=== PATIENT | male | born 1995 | race Caucasian/White ===

== ENCOUNTER 2019-01-31 20:42 | Emergency (ER) | payer SELFPAY ==
[2019-01-31] MEDS ORDERED: Lidocaine 2% Viscous Solution 15 ML Cup PO ONE (20:43)
[2019-01-31] MEDS ORDERED: Acetaminophen/HYDROcodone 325-10 MG Tab PO ONE (20:43)
[2019-01-31] MEDS ORDERED: Clindamycin HCl 150 MG Cap PO ONE (20:49)
[2019-01-31] MEDS ORDERED: Acetaminophen/HYDROcodone 325-10 MG Tab ONE (20:51)
[2019-01-31] MEDS ORDERED: Lidocaine 2% Viscous Solution 15 ML Cup ONE (20:52)
--- NOTE | 2019-01-31 20:53 | EDM.PDOC ---
ED HPI GENERAL MEDICAL PROBLEM - General Chief Complaint: ENT Problem Stated Complaint: RIGHT SIDE OF JAW-PAIN Time Seen by Provider: 01/31/19 20:50 Source of Information: Reports: Patient History Limitations: Reports: No Limitations - History of Present Illness INITIAL COMMENTS - FREE TEXT/NARRATIVE: broke tooth few days ago. 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 [No Known Home Meds] 01/31/19 [History] Past Medical History - Past Health History Medical/Surgical History: Denies Medical/Surgical History Social & Family History - Family History Family Medical History: Noncontributory ED ROS ENT - Review of Systems Review Of Systems: ROS reveals no pertinent complaints other than HPI. ED EXAM, ENT - Physical Exam Exam: See Below Exam Limited By: No Limitations General Appearance: Alert, WD/WN, Mild Distress, Other (pain) Ears: Hearing Grossly Normal Mouth/Throat: Dental Abcess, Dental Pain, Dental Tenderness Head: Atraumatic Neck: Non-Tender, Full Range of Motion Respiratory/Chest: No Respiratory Distress Cardiovascular: Regular Rate, Rhythm GI/Abdominal: Soft, Non-Tender Neurological: Alert, Oriented, Normal Cognition, Normal Gait, No Motor/Sensory Deficits Psychiatric: Tearful Skin: Warm, Dry, Normal Color Lymphatic: No Adenopathy Course - Vital Signs Last Recorded V/S: Last Vital Signs Temp 36.6 C 01/31/19 20:46 Pulse 103 H 01/31/19 20:46 Resp 18 01/31/19 20:46 BP 156/104 H 01/31/19 20:46 Pulse Ox 100 01/31/19 20:46 - Orders/Labs/Meds Meds: Medications Discontinued Medications Generic Name Dose Route Start Last Admin Trade Name Freq PRN Reason Stop Dose Admin Clindamycin HCl 300 mg 01/31/19 20:49 Cleocin PO 01/31/19 20:50 ONETIME ONE Departure - Departure Time of Disposition: 20:52 Disposition: Home, Self-Care 01 Condition: Good Clinical Impression: Dental caries, Dental abscess - Discharge Information Instructions: Dental Abscess, [id number] Additional Instructions: 1) avoid solid foods 2) see dentist rx igven; clindamycin 150mg qid x 40 vicodin 5/325mg bid prn x 6
== END 2019-01-31 20:58 | disposition home or self-care (01) ==
LOC: DL.ED 20:42
DX: K04.7 Periapical abscess without sinus (principal); K02.9 Dental caries, unspecified
CPT/HCPCS: 99282; A9270